=== PATIENT | male | born 1980 | race Caucasian/White ===

== ENCOUNTER 2022-05-26 12:53 | Emergency (ER) | payer OTHER, SELFPAY ==
[2022-05-26 13:02] VITALS: BP 120/78; BP 121/68; PULSE 102; PULSE 93; RESP 16; TEMP 37.1; O2SAT 97; O2SAT 98; BMI 26.3
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
[2022-05-26] MEDS: Ketorolac Tromethamine 30 MG/ML VIAL IM (13:57)
== END 2022-05-26 14:02 | disposition home or self-care (01) ==
PROVIDERS: Emergency Provider Emergency Medicine
DX: S16.1XXA Strain of muscle, fascia and tendon at neck level, initial encounter (principal); V43.52XA Car driver injured in collision with other type car in traffic accident, initial encounter; Y93.9 Activity, unspecified; Y92.410 Unspecified street and highway as the place of occurrence of the external cause; Y99.9 Unspecified external cause status; Z79.899 Other long term (current) drug therapy
CPT/HCPCS: 96372; 99283; 99284; J1885